=== PATIENT | female | born 2000 | race Caucasian/White ===

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

== ENCOUNTER → 2022-02-18 | Outpatient (CLI) | payer OTHER, MEDICAID ==
[~2022-02-18] MED LIST changes: +PROHANCE 279.3MG/ML 5ML VIAL ONE
== END ==
LOC: M PLAIMG 12:58
PROVIDERS: ATTEND Student in an Organized Health Care Education/Training Program
DX: Z13.29 Encounter for screening for other suspected endocrine disorder (principal)

== ENCOUNTER → 2023-07-18 | Outpatient (CLI) | payer OTHER, MEDICAID ==
[~2023-07-18] MED LIST changes: +CYAN-1; +FOLI1TAB11; +LOSA100T46; +NOXI1TAB PO; +PROHANCE 279.3MG/ML 5ML VIAL As Ordered ONE; -PROHANCE 279.3MG/ML 5ML VIAL ONE
== END ==
LOC: M RAD 10:23
PROVIDERS: ATTEND Family Medicine
DX: E22.1 Hyperprolactinemia (principal)

== ENCOUNTER → 2023-10-27 | Outpatient (CLI) | payer OTHER ==
[~2023-10-27] MED LIST changes: -PROHANCE 279.3MG/ML 5ML VIAL As Ordered ONE
== END ==
LOC: M PLAIMG 07:56
PROVIDERS: ATTEND Physician Assistant Surgical
DX: S93.692D Other sprain of left foot, subsequent encounter (principal); Y93.9 Activity, unspecified; Y92.9 Unspecified place or not applicable

== ENCOUNTER → 2024-04-04 | Outpatient (CLI) | payer OTHER ==
[2024-04-04 14:00] LABS: PLATELET COUNT, AUTOMATED 366 10^3/uL (150-450)
[2024-04-04 14:13] LABS: INR 1.03; PARTIAL THROMBOPLASTIN TIME 33.1 SECONDS (24.8-34.2); PROTHROMBIN TIME 13.2 SECONDS (12.5-14.5)
[2024-04-04 14:54] LABS: HCG, SERUM QUALITATIVE NEGATIVE (NEGATIVE)
== END ==
LOC: M LAB 12:19
PROVIDERS: ATTEND Physical Medicine & Rehabilitation
DX: Z01.812 Encounter for preprocedural laboratory examination (principal)

== ENCOUNTER 2024-09-18 15:11 | Emergency (ER) | payer OTHER ==
[~2024-09-18] VITALS: Ht 172.7 cm; Wt 142.3 kg
[2024-09-18] MEDS ORDERED: ZYRTTAB8 PO (15:43)
[2024-09-18 18:02] VITALS: BP 169/93; TEMP 99.8; O2SAT 99
[2024-10-08] MEDS ORDERED: PRAZ2CAP (14:15)
[2024-10-08] MEDS ORDERED: VITAD400CA FT (14:15)
[2024-10-08] MEDS ORDERED: TRAZ-252 (14:15)
[2024-10-08] MEDS ORDERED: CETI-24 (14:15)
== END 2024-09-18 18:05 | disposition home or self-care (01) ==
LOC: M ED 15:11
DX: S06.0X1A Concussion with loss of consciousness of 30 minutes or less, initial encounter (principal); S50.02XA Contusion of left elbow, initial encounter; Y92.410 Unspecified street and highway as the place of occurrence of the external cause; Y93.9 Activity, unspecified; Y99.9 Unspecified external cause status; V49.40XA Driver injured in collision with unspecified motor vehicles in traffic accident, initial encounter; Z88.8 Allergy status to other drugs, medicaments and biological substances; Z91.040 Latex allergy status; Z91.018 Allergy to other foods; Z79.899 Other long term (current) drug therapy

== ENCOUNTER 2024-12-01 22:04 | Emergency (ER) | payer OTHER, MEDICAID ==
[~2024-12-01] VITALS: Ht 172.7 cm; Wt 109.1 kg
[~2024-12-01 22:04] MED LIST changes: +CETI-24; +PRAZ2CAP; +TRAZ-252; +VITAD400CA FT; +ZYRTTAB8 PO
[2024-12-01 22:46] LABS: BASO # 0.1 10^3/uL (0.0-0.2); BASO % 0.3 % (0.0-1.0); HEMATOCRIT 37.8 % (36.0-47.0); HEMOGLOBIN 11.7 g/dl (12.0-15.5); LYMPH # 0.8 10^3/uL (1.5-5.0); LYMPH % 3.1 % (24.0-44.0); MEAN CORPUSCULAR HEMOGLOBIN 18.5 pg (27.0-33.0); MEAN CORPUSCULAR VOLUME 59.9 fl (80.0-96.0); MONO # 0.8 10^3/uL (0.0-0.8); MONO % 3.3 % (2.0-8.0); NEUTROPHILS # 22.1 10^3/uL (1.5-8.5); NEUTROPHILS % 92.7 % (36.0-66.0); PLATELET COUNT, AUTOMATED 384 10^3/uL (150-450); RED BLOOD COUNT 6.31 10^6/uL (4.00-5.40); WHITE BLOOD COUNT 23.9 10^3/uL (4.0-10.0)
[2024-12-01 22:57] LABS: LIPASE 25 U/L (12-53)
[2024-12-01 23:20] LABS: ALBUMIN 3.7 G/DL (3.2-5.2); ALKALINE PHOSPHATASE 69 U/L (35-104); ALT/SGPT 19 U/L (7.0-40); AST/SGOT 15 U/L (<34); BILIRUBIN,DIRECT 0.3 MG/DL (<0.4); BILIRUBIN,TOTAL 0.8 MG/DL (0.3-1.2); BLOOD UREA NITROGEN 20 MG/DL (9-23); CALCIUM LEVEL 8.4 MG/DL (8.5-10.1); CARBON DIOXIDE LEVEL 20 MMOL/L (20-31); CHLORIDE LEVEL 107 MMOL/L (98-107); CREATININE FOR GFR 0.62 MG/DL (0.55-1.30); GLOMERULAR FILTRATION RATE > 90.0 (>60); GLUCOSE, FASTING 142 MG/DL (60-100); POTASSIUM SERUM 3.9 MMOL/L (3.5-5.1); SODIUM LEVEL 140 MMOL/L (136-145); TOTAL PROTEIN 7.3 G/DL (5.7-8.2)
[2024-12-02 00:03] LABS: PROCALCITONIN 0.28 ng/ml
[2024-12-02] MEDS: NS (Normal Saline) 0.9% 1,000 ML IV ONE (00:11)
[2024-12-02] MEDS: ONDANSETRON 4MG 2ML VIAL IV ONE (00:11)
[2024-12-02] MEDS: KETOROLAC 30 MG/ML 1ML VIAL IV ONE (00:11)
[2024-12-02] MEDS ORDERED: ISOVUE-370 76% 100ML VIAL As Ordered ONE (00:31)
[2024-12-02] MEDS ORDERED: TRAM50TA2 PO (02:17)
[2024-12-02] MEDS ORDERED: REGL5TAB2 PO (02:17)
[2024-12-02] MEDS ORDERED: ONDA-282 PO (02:17)
[2024-12-02] MEDS: traMADol 50 MG TAB PO ONE (02:21)
[2024-12-02 02:30] VITALS: BP 149/78; TEMP 99.1; O2SAT 98
== END 2024-12-02 02:48 | disposition home or self-care (01) ==
LOC: M ED 22:04
DX: I88.0 Nonspecific mesenteric lymphadenitis (principal); N83.299 Other ovarian cyst, unspecified side; I10 Essential (primary) hypertension; F43.10 Post-traumatic stress disorder, unspecified; Z88.8 Allergy status to other drugs, medicaments and biological substances; Z91.040 Latex allergy status; Z91.018 Allergy to other foods; Z79.899 Other long term (current) drug therapy
CPT/HCPCS: 74177; 80048; 80076; 83605; 83690; 84145; 85025; 87486; 87581; 87633; 87798; 96361; 96374; 99284; J1885; J2405; Q9967

== ENCOUNTER 2025-06-20 11:54 | Outpatient (CLI) | payer OTHER ==
[~2025-06-20] VITALS: Ht 172.7 cm; Wt 145.0 kg
[~2025-06-20 11:54] MED LIST changes: +ALBUTEROL SULFATE 2.5 MG/0.5 ML INH CONCENTRATE NEB SOLN INH PRN; +EPINEPHrine INJ 1 MG/ML 1ML AMP IM PRN; +METF500T13; +ONDA-282 PO; +REGL5TAB2 PO; +TIZA10TA; +TRAM50TA2 PO; +diphenhydrAMINE 50 MG/ML VIAL IV PRN
[2025-06-20 12:15] VITALS: BP 166/90; O2SAT 98
[2025-06-20] MEDS: IRON SUCROSE 300 MG in NS 250 ML IV ONE (12:21)
[2025-06-20] MEDS: ACETAMINOPHEN 325 MG TAB PO ONE (12:33)
[2025-06-20] MEDS: diphenhydrAMINE 50 MG/ML VIAL IV ONE (12:33)
[2025-06-20 13:06] VITALS: BP 125/74; O2SAT 97
[2025-06-20 14:42] VITALS: BP 129/71; O2SAT 99
== END 2025-06-20 14:45 | disposition home or self-care (01) ==
LOC: M INFU 11:54
PROVIDERS: ATTEND Specialist
DX: D50.9 Iron deficiency anemia, unspecified (principal); Z88.8 Allergy status to other drugs, medicaments and biological substances; Z91.040 Latex allergy status; Z91.018 Allergy to other foods
CPT/HCPCS: 96365; 96366; 96375; J1200; J1756